=== PATIENT | female | born 1970 | race Caucasian/White ===

== ENCOUNTER → 2023-09-17 13:03 | Outpatient (CLI) | payer OTHER, SELFPAY ==
--- NOTE | 2023-09-17 12:45 | DI.RAD_ITS ---
Exam(s) XR RIBS RT W PA LAT CHEST EXAM: XR RIBS RT W PA LAT CHEST CLINICAL HISTORY: evaluate pathology, R07.81 TECHNIQUE: 2D digital imaging was performed.Six images were obtained. COMPARISON: No exams were available for comparison FINDINGS: MEDIASTINUM: Normal. HEART: Normal. PULMONARY VASCULATURE: Normal. LUNGS: Clear. PLEURAL SPACE: No pleural effusion or pneumothorax. BONE:Normal. RIGHT RIBS: There is a minimally displaced fracture involving the anterior aspect of the right 7th ri b. There is an old right 5th rib fracture deformity. OTHER FINDINGS:Surgical clips are seen in the right upper quadrant of the abdomen which may reflect p rior cholecystectomy. IMPRESSION: 1. No acute pulmonary findings. 2. Minimally displaced fracture of the anterior aspect of the right 7th rib. DATA REPOSITORY: RADIATION DOSE DELIVERED:
== END ==
PROVIDERS: Visit Provider Nurse Practitioner Family
DX: R07.81 Pleurodynia (principal)
CPT/HCPCS: 71046; 71100